=== PATIENT | female | born 1965 ===

== ENCOUNTER 2017-03-20 11:45 | Day surgery (SDC) | payer BC ==
[~2017-03-20] VITALS: Ht 162.6 cm; Wt 119.8 kg
[~2017-03-20 11:45] MED LIST: ACET500; BETA.05TO; BIOTIN5000 MCG; CHOL10002; MAGNESIUM400 MG; OCEAN BLUE OME350 MG; OMEPRAZOLE MAGN20 MG; SIMV10; TEMA15; Voltaren100 GM
== END 2017-03-20 13:18 | disposition home or self-care (01) ==
LOC: ORSCSDS 11:45
PROVIDERS: Internal Medicine Gastroenterology
PROC: 0DBL8ZX Excision of Transverse Colon, Via Natural or Artificial Opening Endoscopic, Diagnostic (ICD-10-PCS; principal; 2017-03-20 13:15)
DX: Z12.11 Encounter for screening for malignant neoplasm of colon (principal); D12.3 Benign neoplasm of transverse colon; K64.0 First degree hemorrhoids; K57.30 Diverticulosis of large intestine without perforation or abscess without bleeding; Z98.84 Bariatric surgery status; E66.01 Morbid (severe) obesity due to excess calories; Z68.42 Body mass index [BMI] 45.0-49.9, adult
CPT/HCPCS: 88305

== ENCOUNTER → 2018-06-26 | Outpatient (CLI) | payer BC ==
[2018-06-27 14:07] LABS: HPV 16 Negative (Negative); HPV 18 Negative (Negative); HPV OTHER HR TYPES Negative (Negative)
== END | disposition home or self-care (01) ==
LOC: LAB SHORT 13:09 → LAB 13:09
PROVIDERS: Nurse Practitioner Women's Health
DX: Z12.72 Encounter for screening for malignant neoplasm of vagina (principal); Z91.89 Other specified personal risk factors, not elsewhere classified
CPT/HCPCS: 87624; G0123

== ENCOUNTER 2019-07-29 11:43 | Day surgery (SDC) | payer BC ==
[~2019-07-29] VITALS: Ht 162.6 cm; Wt 125.6 kg
--- NOTE | 2019-07-29 16:16 | NUR ---
07/29/19 1616 Adry Patel [facility] DISCHARGED PT. [facility] CALLED [facility] ON PHONE & PER [facility] PT.'S LUNGS WERE CLEAR, PT. DENIED ANY PAIN, & IV SITE WITHOUT ANY PROBLEMS WHEN DISCONTINUED. PER [facility] NO FURTHER FLUIDS INFUSED AFTER PT. PROCEDURE. [facility] VERBALIZES PT. AMBULATED OUT TO CAR. DISCHARGED INSTRUCTIONS WERE GIVEN TO PT. BY [facility] IN [place] AFTER PROCEDURE. DISCHARGE INSTRUCTIONS WERE ALSO GIVEN IN PREOP BEFORE PROCEDURE WITH UNDERSTANDING BY [facility].
== END 2019-07-29 13:50 | disposition home or self-care (01) ==
LOC: ORSCSDS 11:43
PROVIDERS: Internal Medicine Gastroenterology
PROC: 0DB68ZX Excision of Stomach, Via Natural or Artificial Opening Endoscopic, Diagnostic (ICD-10-PCS; principal; 2019-07-29 13:00)
DX: R10.9 Unspecified abdominal pain (principal); K22.2 Esophageal obstruction; K21.0 Gastro-esophageal reflux disease with esophagitis; K44.9 Diaphragmatic hernia without obstruction or gangrene; E66.01 Morbid (severe) obesity due to excess calories; Z68.42 Body mass index [BMI] 45.0-49.9, adult; Z79.899 Other long term (current) drug therapy
CPT/HCPCS: J2704; J7120

== ENCOUNTER → 2021-05-18 | Outpatient (CLI) | payer BC ==
[2021-05-18 14:01] LABS: Microalb/Creat Ratio UR, Rand Unable to Calculate mg/g (0.000-30.000); Microalbumin, Random Urine <5.000 mg/L (0.000-20.000)
== END | disposition home or self-care (01) ==
LOC: LAB SHORT 10:23
PROVIDERS: Physician Assistant
DX: E11.9 Type 2 diabetes mellitus without complications (principal)
CPT/HCPCS: 82043; 82570

== ENCOUNTER 2021-11-15 08:43 | Day surgery (SDC) | payer BC ==
[~2021-11-15] VITALS: Ht 162.6 cm; Wt 105.4 kg
[~2021-11-15 08:43] MED LIST changes: +Bentyl20 MG PO; +FAMO40 PO; +FIBER CAPS PO; +LORA10ER PO; +METF500 PO; +PANT20 PO; +Percocet 5-3251 EACH PO; +Simvastatin20 MG PO; +TRAM50 PO; +Voltaren100 GM TOP
--- NOTE | 2021-11-15 09:40 | NUR ---
Ambulatory in Day Surgery. Patient confirms NPO status and agrees with scheduled surgery. History, Chart, Medications and Allergies reviewed before start of procedure.
--- NOTE | 2021-11-15 09:40 | NUR ---
GLASSES PLACED IN PATIENT BELONGINGS
--- NOTE | 2021-11-15 11:02 | NUR ---
11/15/21 1102 Angel Coleman 1G STARTED IN PREOP
--- NOTE | 2021-11-15 14:23 | NUR ---
POST OP: REPORT RECEIVED FROM PRICILLA, EMS INSTRUCTOR. PT TO UNIT AT 1310. PT IS DROWSY, AWAKENS TO VOICE. FOLLOWS COMMANDS AND ANSWERS QUESTIONS. VSS, DRESSING AT L KNEE CDI. DENIES PAIN, UNABLE TO MOVE LEGS AT THIS TIME DUE TO SPINAL. PT SAT UP IN BED AND BECAME NEASATED, SMALL AMT EMESIS, GIVEN ZOFRAN. CALL LIGHT IN REACH, PT AT BEDSIDE.
--- NOTE | 2021-11-15 17:33 | NUR ---
SUMMARY: NO ACUTE CHANGE SINCE POST OP. VSS, CONTINUES TO BE DROWSY, AWAKENS TO VOICE. PT REPORTS NO PAIN, STILL SOME N/T TO L LEG CAN MOVE LEGS, NO URGE TO VOID YET. HAS TOLERATED PO INTAKE, NAUSEA HAS DECREASED . SURGICAL SITE WNL. WILL PASS REPORT TO STEFANO RN.
--- NOTE | 2021-11-16 03:11 | NUR ---
SHIFT SUMMARY PT POD 0 LEFT TOTAL KNEE. PT HAS HAD INTERMITTENT PAIN AND NAUSEA T/O THE NIGHT MEDICATED PER EMAR. PT INTAKING PO FLUIDS AND SOME FOOD, BUT APPETITE IS POOR. DRESSING INTACT TO LEFT KNEE. PT DENIES N/T IN EXT. IV ANTIBIOTICS INFUSED. VITALS STABLE. PT HAS BEEN UP AND AMBULATING AND IS TOLERATING WELL. PLAN IS FOR DC TODAY. BED IN LOWEST POSITION, CALL LIGHT WITHIN REACH.
[2021-11-16 06:14] LABS: BASOPHILS ABSOLUTE AUTO 0.02 K/mm3 (0.00-0.23); BASOPHILS PERCENT AUTO 0 % (0-2); EOSINOPHILS ABSOLUTE AUTO 0.02 K/mm3 (0.00-0.68); EOSINOPHILS PERCENT AUTO 0 % (0-6); Hematocrit 34.7 % (33.0-51.0); Hemoglobin 11.2 g/dL (11.5-16.0); IMMATURE GRAN ABSOLUTE AUTO 0.04 K/mm3 (0.00-0.10); IMMATURE GRAN PERCENT AUTO 0 % (0-1); LYMPHOCYTES ABSOLUTE AUTO 1.55 K/mm3 (0.84-5.20); LYMPHOCYTES PERCENT AUTO 16 % (21-46); MONOCYTES ABSOLUTE AUTO 0.65 K/mm3 (0.16-1.47); MONOCYTES PERCENT AUTO 7 % (4-13); Mean Corpuscular HGB 29.2 pg (26.0-34.0); Mean Corpuscular HGB Conc 32.3 g/dL (31.5-36.5); Mean Corpuscular Volume 90 fL (80-100); Mean Platelet Volume 10.8 fL (9.1-12.4); NEUTROPHILS ABSOLUTE AUTO 7.63 K/mm3 (1.96-9.15); NEUTROPHILS PERCENT AUTO 77 % (41-73); Platelet Count 236 K/mm3 (150-400); RDW Coefficient Variation 13.2 % (11.7-14.2); Red Blood Cell Count 3.84 M/mm3 (3.80-5.20); White Blood Cell Count 9.91 K/mm3 (4.00-11.30)
[2021-11-16 06:34] LABS: Magnesium, Blood 1.9 mg/dL (1.6-2.4)
[2021-11-16 06:35] LABS: Bun/Creatinine Ratio 22.9 (12.0-20.0); Calcium, Blood 8.4 mg/dL (8.5-10.1); Creatinine, Blood 0.57 mg/dL (0.40-1.00); Potassium, Blood 3.8 mmol/L (3.5-5.5)
[2021-11-16] MEDS ORDERED: HYDMOR2 PO (10:30)
[2021-11-16] MEDS ORDERED: PROM25 PO (10:31)
[2021-11-16] MEDS ORDERED: XARELTO10 M1 PO (10:32)
[2021-11-16] MEDS ORDERED: SULTRIDS PO (10:33)
--- NOTE | 2021-11-16 14:37 | NUR ---
DISCHARGE SUMMARY PT A&OX4, VSS/RA, JAY JAY PO, VOIDING WELL, AMB FWW SBA TO BRP/HALLWAY/UP TO CHAIR, PAIN MANAGED WELL WITH PO DILAUDID/TYLENOL, IV DC'D. DC INS PROVIDED TO PT AND SPOUSE. REP UNDERSTANDING THOSE INSTRUCTIONS INCLUDING FU WITH SURGEON, DRESSING CHANGES, OK TO SHOWER/NO [id number], PAIN MANAGEMENT WITH ULTRAM/DILAUDID/TYLENOL AND AWARENESS OF NARC INTAKE/FALL RISK, TAKE SHORT FREQUENT WALKS WITH FWW/GB (SENT HOME FOR SAFETY), UP TO CHAIR/OOB, XARELTO, BACTRIM, OUTPT PHYSICAL THERAPY APPTS/PT EXERCISES AT HOME. PT LEFT FLOOR VIA WC TO GO HOME WITH , WITH ALL PERSONAL POSSESSIONS INCLUDING DC PACKET, POLAR NICK, AQUACEL DRESSINGS. MEDS FAXED TO PHARMACY, OR PT HAS AT HOME ALREADY.
== END 2021-11-16 14:15 | disposition home or self-care (01) ==
LOC: ORSCMMR 08:43 → ORD 10:45 → ORSCMMR 10:45 → SURS 13:25 → ORSCMMR 13:25 → SURS 11-16 14:15
PROVIDERS: Orthopaedic Surgery
DX: M17.12 Unilateral primary osteoarthritis, left knee (principal); E78.5 Hyperlipidemia, unspecified; K21.9 Gastro-esophageal reflux disease without esophagitis; D64.9 Anemia, unspecified; G47.00 Insomnia, unspecified; Z88.6 Allergy status to analgesic agent; E11.9 Type 2 diabetes mellitus without complications; Z79.84 Long term (current) use of oral hypoglycemic drugs; Z68.39 Body mass index [BMI] 39.0-39.9, adult
CPT/HCPCS: 36415; 73560-LT; 80048; 82947; 83735; 85025; 97110; 97116; 97161; 97530; A9270; C1713; C1776; C9113; J0171; J0690; J0735; J1170; J1885; J2250; J2405; J2704; J2765; J2795; J3010; J3370; J7030; J7120